=== PATIENT | female | born 1990 | race Caucasian/White ===

== ENCOUNTER 2016-06-13 00:10 | Emergency (ER) | payer OTHER ==
[2016-06-13 02:35] LABS: BASOPHIL % 1.2 % (0-2); CALCIUM 7.7 mg/dL (8.5-10.1); CARBON DIOXIDE 23.8 mmol/L (21-32); CHLORIDE SERUM 105 mmol/L (98-107); CREATININE SERUM 0.9 mg/dL (0.6-1.0); GFR1 > 60 mL/min; GLUCOSE SERUM 96 mg/dL (74-106); PLATELET COUNT 330 x10^3mcL (130-400); POTASSIUM SERUM 3.2 mmol/L (3.5-5.1); SODIUM SERUM 140 mmol/L (136-145)
[2016-06-13 02:37] LABS: RED CELL DISTRIBUTION WIDTH 15.7 % (11.5-14.5)
[2016-06-13 02:41] LABS: ALBUMIN 2.5 g/dL (3.4-5.0); ALKALINE PHOSPHATASE 78 U/L (46-116); ALT/SGPT 33 U/L (14-59); AST/SGOT 30 U/L (15-37); BILIRUBIN TOTAL 0.2 mg/dL (0.20-1.00); TOTAL PROTEIN, SERUM 6.5 g/dL (6.4-8.2)
[2016-06-13 03:54] VITALS: BP 114/68
== END 2016-06-13 03:47 | disposition home or self-care (01) ==
LOC: ED 00:10
PROVIDERS: Emergency Medicine
DX: N39.0 Urinary tract infection, site not specified (principal); R05 Cough

== ENCOUNTER 2016-06-22 09:05 | Emergency (ER) | payer OTHER ==
[~2016-06-22] VITALS: Ht 157.5 cm; Wt 54.4 kg
[2016-06-22 09:16] VITALS: BP 104/57
== END 2016-06-22 12:22 | disposition home or self-care (01) ==
LOC: ED 09:05
DX: S29.011A Strain of muscle and tendon of front wall of thorax, initial encounter (principal); X58.XXXA Exposure to other specified factors, initial encounter; Y93.89 Activity, other specified; Y92.89 Other specified places as the place of occurrence of the external cause; Y99.8 Other external cause status
CPT/HCPCS: J1885; J7613; J7644